=== PATIENT | female | born 1965 | race Two or more races ===

== ENCOUNTER 2018-01-19 12:30 | Outpatient (CLI) | payer OTHER | END 2018-01-19 12:40 | disposition home or self-care (01) | LOC: LAB 12:30 | DX: D64.9 Anemia, unspecified (principal); I11.9 Hypertensive heart disease without heart failure; E78.00 Pure hypercholesterolemia, unspecified; R31.9 Hematuria, unspecified; E03.9 Hypothyroidism, unspecified; E11.9 Type 2 diabetes mellitus without complications; K90.81 Whipple's disease ==

== ENCOUNTER 2018-01-19 14:20 | Outpatient (CLI) | payer OTHER | END 2018-01-19 14:34 | disposition home or self-care (01) | LOC: SONOGRAMA 14:20 | DX: I11.9 Hypertensive heart disease without heart failure (principal) ==

== ENCOUNTER 2018-11-03 10:04 | Outpatient (CLI) | payer OTHER | END 2018-11-03 10:53 | disposition home or self-care (01) | LOC: RAD 10:04 | DX: M25.511 Pain in right shoulder (principal); Z00.01 Encounter for general adult medical examination with abnormal findings; M54.2 Cervicalgia ==